=== PATIENT | female | born 1970 ===

== ENCOUNTER → 2018-02-19 | Day surgery (SDC) | payer OTHER ==
[~2018-02-19] VITALS: Ht 152.4 cm; Wt 57.6 kg
[~2018-02-19] MED LIST: LEVOTHYROXINE50 MCG PO; MULTIVITAMINS1 EAC9 PO
--- NOTE | 2018-02-19 10:26 | Operative Report ---
Operative/Inv Procedure Report Surgery Date: 02/19/18 Name of Procedure: left ESWL with cystoscopy stent placement Pre-Operative Diagnosis: 2.2cm stone in the left kidney and left ureteral stone Post-Operative Diagnosis: same Estimated Blood Loss: scant Surgeon/Carton Making Machine Operator: Mary Torrez MD Anesthesia: local monitored anesthesi Drains: 6x22cm stent Specimens: none Complications: none Condition: stable Operative Indication: left renal stone 2.2cm and left ureteral stone Operative/Procedure Note Note: 47yo female with a hx of kidney stones. She was treated with ESWL with Dr. Webster. She was told she would need PCNL. However i explained that she could have sandwich therapy with ESWL and URS with laser lithotripsy. She was consented for left ESWL for the large renal stone with stent placement given the size of her stone. She was given the risks, benefits and alternatives. All questions were answered. Pt was brought to the operating room and placed in the supine position. She was optimally positioned after time out was performed. She was given IV antibiotics. She as placed in a frog leg position and prepped and draped in the standard sterile fashion. Cystoscopy was performed. She had a sensor guidewire placed into the renal pelvis and the 6x22cm stent was placed over it without difficulty. The wire was removed and the stent was seen to be in good position. She was then optimally positioned for the ESWL. Flouroscopy showed the stent to be in good position proximally next to the stone. The shockwaves were started at 1-17 power for 250 shocks, then power 18-19 for 250 shocks, and finally at power of 19 for 2000 shocks. She tolerated the procedure well. The stone was seen to be visibly changed on flouroscopy. Patient was transferred to the recovery room in stable condition. Findings: 2.2cm large renal stone and ureteral stone not seen stent placed without issue Discharge Disposition: Same Day Admissions
== END ==
LOC: STS 02:50
DX: N20.2 Calculus of kidney with calculus of ureter (principal); Z87.442 Personal history of urinary calculi; R35.0 Frequency of micturition; E03.9 Hypothyroidism, unspecified
CPT/HCPCS: 81025; C2617; J0690; J2250

== ENCOUNTER → 2018-08-06 | Day surgery (SDC) | payer OTHER ==
[~2018-08-06] VITALS: Ht 152.4 cm; Wt 59.0 kg
--- NOTE | 2018-08-06 13:54 | Operative Report ---
Operative/Inv Procedure Report Surgery Date: 08/06/18 Name of Procedure: left ESWL and stent ESWL with stent removal with cystoscopy Pre-Operative Diagnosis: very large left renal stone with calcified retained stent Post-Operative Diagnosis: same Estimated Blood Loss: scant Surgeon/Film Projector Operator: Mary Torrez MD Anesthesia: local monitored anesthesi Specimens: stent Complications: none Condition: stable Operative Indication: very large left renal stone with stent calcification Operative/Procedure Note Note: This is a 47yo female with a large 2.2cm left renal stone and retained left calcified ureteral stent. She has no pain, NV/F/C presently. Given her noncompliance, she would be better suited to have her stones addressed with PCNL but she wants only a female Urologist. I suggested she call [facility] to see if anyone there does this. She will need ESWL to have her stent removed due to the length of time she has had the stent in place. Will shock the stone again with the remaining shocks left after the stent is shocked. The risks, benefits and alternatives were reviewed with the patient and her daughter in the office and in the holding area again. All questions were answered and the consent was signed. Patient was brought to the operating room and placed on the table in the supine position keeping her covered as much as possible since the male tech was in the room. Time out was performed. IV kefzol was infused. ESWL was started after IV sedation was given adequately and the 2.2cm stone was located in the lower pole. The stent was also easily identified. The shockwaves were targeted to the stent first and then the stone. The ESWL was started at a power of 10 for 100 shocks, then power of 11 for 100 shocks, then power of 12 for 100 shocks, then power of 13 for 100 shocks and finally power of 20 for 2100 shocks. Cystoscopy was performed and the stent was removed without issue. Patient tolerated the procedure well. Patient was transferred to [facility] in stable condition. Findings: large lower pole stone 2.2cm and retained stent easily removed with cystoscopy Discharge Disposition: Same Day Admissions
== END ==
LOC: STS 02:17
DX: N20.0 Calculus of kidney (principal); Z87.442 Personal history of urinary calculi
CPT/HCPCS: 81025; J0690; J2250